=== PATIENT | female | born 1980 | race Caucasian/White ===

== ENCOUNTER 2016-04-17 14:27 | Emergency (ER) | payer MEDICAID ==
[~2016-04-17] VITALS: Ht 170.2 cm; Wt 79.4 kg
[2016-04-17 14:55] VITALS: BP 124/72; PULSE 75; RESP 16; TEMP 98.2; O2SAT 98
--- NOTE | 2016-04-17 15:23 | NUR ---
PT IN TRIAGE ROOM, DR. CAMARA EXAMINING PT.
--- NOTE | 2016-04-17 16:15 | NUR ---
Patient to ER bed H1 to gown for evaluation. Side rails up. Report given to Steven by
--- NOTE | 2016-04-17 16:50 | NUR ---
Patient given written and verbal discharge instructions and verbalizes understanding. ER MD discussed with patient the results and treatment provided. Patient in stable condition. ID arm band removed. Rx of Motrin 600mg, Soma 350mg Quant 10 given. Patient educated on pain management and to follow up with PMD. Pain Scale 0/10. Opportunity for questions provided and answered.
[2016-04-17 16:51] VITALS: BP 121/71; PULSE 77; RESP 16; TEMP 98.2; O2SAT 98
== END 2016-04-17 16:50 | disposition home or self-care (01) ==
LOC: SED 14:27
DX: S16.1XXA Strain of muscle, fascia and tendon at neck level, initial encounter (principal); R03.0 Elevated blood-pressure reading, without diagnosis of hypertension; Z88.5 Allergy status to narcotic agent; Z90.49 Acquired absence of other specified parts of digestive tract; Z90.710 Acquired absence of both cervix and uterus; X50.1XXA Overexertion from prolonged static or awkward postures, initial encounter; Y93.89 Activity, other specified; Y99.8 Other external cause status; Y92.89 Other specified places as the place of occurrence of the external cause
CPT/HCPCS: 72040-TC; 99284

== ENCOUNTER 2016-05-11 17:02 | Emergency (ER) | payer MEDICAID ==
[~2016-05-11] VITALS: Ht 170.2 cm; Wt 82.6 kg
[2016-05-11 17:12] VITALS: BP 118/70; PULSE 78; RESP 16; TEMP 98.3; O2SAT 96
--- NOTE | 2016-05-11 17:12 | NUR ---
Patient triaged and placed in waiting room. VSS and patient appears in no acute distress at this time. Accompanied by self, awaiting available bed, and MD notified of need for MSE.
[2016-05-11] MEDS ORDERED: KETOROLAC TROMETHAMINE 60 MG/2 ML VIAL IM ONE (18:30)
--- NOTE | 2016-05-11 19:15 | NUR ---
Placed in hallway.
--- NOTE | 2016-05-11 19:25 | NUR ---
Pt states she has been having neck and body pain for about two weeks ago. No relief from OTC drugs. Will continue to monitor. No other injuries or complaints mentioned/noted. No distress noted.
[2016-05-11 20:03] VITALS: BP 118/70; PULSE 78; RESP 16; TEMP 98.3; O2SAT 96
--- NOTE | 2016-05-11 20:03 | NUR ---
Patient given written and verbal discharge instructions and verbalizes understanding. ER CUT OFF [employer] discussed with patient the results and treatment provided. Patient in stable condition. ID arm band removed. Rx of Tramadol and mobic given. Patient educated on pain management and to follow up with PMD. Pain Scale 2/10. Opportunity for questions provided and answered.
== END 2016-05-11 20:03 | disposition home or self-care (01) ==
LOC: SED 17:02
DX: M54.2 Cervicalgia (principal); G89.29 Other chronic pain; Z88.5 Allergy status to narcotic agent
CPT/HCPCS: 81025; 96372; 99283; J1885